=== PATIENT | female | born 1940 | race Caucasian/White ===

== ENCOUNTER 2018-10-10 18:08 | Emergency (ER) | payer MEDICARE, OTHER ==
[~2018-10-10] VITALS: Ht 167.6 cm; Wt 59.0 kg
--- NOTE | 2018-10-10 18:24 | NUR ---
pt BIB [facility] from home with c/o s/o diffuse R sided abd pain today. per pt has a hx of dementia and is at her baseline of oriented to self. per repot pt was in a lot of pain on scene and was very agitated and yelling. pt was medicated with 200mcg of fentanyl HELMET HAT PUNCHER. pt had in IV placed HELMET HAT PUNCHER but it was dislodged dring transfer to [facility] from [facility]. dressing applied. pt is drowsy and confused. mildly hypoxic on RA, placed on NC at 2L. pt is very diaphoretic and pale. EKG has been to bedside. pt has no visible injuries, at bedside deneis any recent injuries. pt placed on concrete buster operator
[2018-10-10] MEDS ORDERED: LISI-170 PO (18:29)
--- NOTE | 2018-10-10 18:39 | NUR ---
report to Alexandra ZUNIGA
[2018-10-10 19:46] LABS: BASOPHILS # (AUTO) 0.08 x10^3/uL (0-0.1); BASOPHILS % (AUTO) 1 % (0-1); EOSINOPHILS # (AUTO) 0.18 x10^3/uL (0-0.4); EOSINOPHILS % (AUTO) 2 % (1-7); LYMPHOCYTES # (AUTO) 2.06 x10^3/uL (1-3.4); LYMPHOCYTES % (AUTO) 18 % (22-44); MD NO; MEAN CORPUSCULAR HEMOGLOBIN 32.3 pg (27.0-34.8); MEAN CORPUSCULAR HGB CONC 34.3 g/dL (32.4-35.8); MEAN CORPUSCULAR VOLUME 94.4 fL (80-100); MEAN PLATELET VOLUME 8.6 fL (7.4-10.4); MONOCYTES % (AUTO) 7 % (2-9); NEUTROPHILS # (AUTO) 8.61 x10^3/uL (1.8-6.8); NEUTROPHILS % (AUTO) 74 % (42-75); PLATELET COUNT 203 x10^3/uL (130-400); RED BLOOD COUNT 4.24 x10^6/uL (3.82-5.3); RED CELL DISTRIBUTION WIDTH 13.1 % (9.6-15.2)
[2018-10-10 19:58] LABS: ALANINE AMINOTRANSFERASE 22 U/L (12-78); ALBUMIN 3.9 g/dL (3.4-5.0); ANION GAP 9 mmol/L (5-15); CALCIUM 9.6 mg/dL (8.5-10.1); CHLORIDE 106 mmol/L (98-107); CREATININE 0.66 mg/dL (0.55-1.02)
[2018-10-10 20:01] LABS: ALKALINE PHOSPHATASE 80 U/L (45-117); BILIRUBIN,TOTAL 0.6 mg/dL (0.2-1.0); TOTAL PROTEIN 7.8 g/dL (6.4-8.2)
[2018-10-10 20:39] LABS: MICROSCOPIC NOT IND
[2018-10-10] MEDS ORDERED: OMNIPAQUE 350 MG/ML, 100ML BOTTLE ONE (20:45)
[2018-10-10 20:48] LABS: CULTURE INDICATED? NO
[2018-10-10 22:17] VITALS: BP 123/51
== END 2018-10-10 22:19 | disposition home or self-care (01) ==
LOC: ED 21:17
DX: R10.9 Unspecified abdominal pain (principal)
CPT/HCPCS: 36415; 74177; 80053; 81003; 83690; 85025; 93005; 99284; Q9967

== ENCOUNTER 2019-11-12 17:10 | Emergency (ER) | payer MEDICARE, OTHER ==
[~2019-11-12] VITALS: Ht 167.6 cm; Wt 54.0 kg
[~2019-11-12 17:10] MED LIST: LISI-170 PO
[2019-11-12] MEDS ORDERED: SODIUM CHLORIDE FLUSH 10ML SYR IVF ONE (17:30)
[2019-11-12 17:47] LABS: BASOPHILS # (AUTO) 0.04 x10^3/uL (0-0.1); BASOPHILS % (AUTO) 1 % (0-1); EOSINOPHILS # (AUTO) 0.08 x10^3/uL (0-0.4); EOSINOPHILS % (AUTO) 1 % (1-7); LYMPHOCYTES # (AUTO) 1.48 x10^3/uL (1-3.4); LYMPHOCYTES % (AUTO) 25 % (22-44); MD NO; MEAN CORPUSCULAR HEMOGLOBIN 31.5 pg (27.0-34.8); MEAN CORPUSCULAR HGB CONC 33.5 g/dL (32.4-35.8); MEAN CORPUSCULAR VOLUME 94.1 fL (80-100); MEAN PLATELET VOLUME 7.8 fL (7.4-10.4); MONOCYTES # (AUTO) 0.34 x10^3/uL (0.2-0.8); MONOCYTES % (AUTO) 6 % (2-9); NEUTROPHILS # (AUTO) 4.05 x10^3/uL (1.8-6.8); NEUTROPHILS % (AUTO) 68 % (42-75); PLATELET COUNT 229 x10^3/uL (130-400); RED BLOOD COUNT 4.07 x10^6/uL (3.82-5.3); RED CELL DISTRIBUTION WIDTH 13.6 % (9.6-15.2)
--- NOTE | 2019-11-12 17:48 | NUR ---
griselda. report received from ems. pt had near syncope at home. pt had glf but pt's cought her. denies loc/trauma. after near syncope, 1 episode of vomit. aox1 is her baseline d/t dementia. resps even and unlabored. all monitors in place. call light within reach. pt's at bedside.
[2019-11-12 17:52] LABS: ALBUMIN 3.4 g/dL (3.4-5.0); ANION GAP 6 mmol/L (5-15); CALCIUM 9.4 mg/dL (8.5-10.1); CHLORIDE 110 mmol/L (98-107)
[2019-11-12 17:55] LABS: ALANINE AMINOTRANSFERASE 19 U/L (12-78); ALKALINE PHOSPHATASE 64 U/L (45-117); BILIRUBIN,TOTAL 0.6 mg/dL (0.2-1.0); CREATININE 0.73 mg/dL (0.55-1.02); TOTAL PROTEIN 6.8 g/dL (6.4-8.2)
[2019-11-12 17:56] LABS: SALICYLATE LEVEL < 1.7 mg/dL (2.8-20.0)
--- NOTE | 2019-11-12 18:04 | NUR ---
pt back to room from ct at this time.
[2019-11-12 18:31] LABS: TROPONIN I < 0.015 ng/mL (0.000-0.045)
--- NOTE | 2019-11-12 18:59 | NUR ---
REPORT FROM REBECCA ZUNIGA ASSUMING CARE OF PT AT THIS TIME
--- NOTE | 2019-11-12 19:45 | NUR ---
STRAIGHT CATH PERFORMED PER POLICY STERILE TECHNIQUE MAINTAINED. URINE SENT TO LAB
[2019-11-12 19:53] VITALS: BP 141/72
[2019-11-12 20:00] LABS: MICROSCOPIC AUTO
[2019-11-12 20:05] LABS: CULTURE INDICATED? YES
== END 2019-11-12 21:38 | disposition home or self-care (01) ==
LOC: ED 20:26
DX: N30.00 Acute cystitis without hematuria (principal); R55 Syncope and collapse; R61 Generalized hyperhidrosis; I10 Essential (primary) hypertension; W18.30XA Fall on same level, unspecified, initial encounter; Y93.89 Activity, other specified; Y92.009 Unspecified place in unspecified non-institutional (private) residence as the place of occurrence of the external cause; Y99.8 Other external cause status
CPT/HCPCS: 36415; 70450; 71045; 80053; 80307; 81001; 82140; 84484; 85025; 87077; 87086; 87186; 93005; 99284

== ENCOUNTER 2020-01-01 13:18 | Emergency (ER) | payer MEDICARE, OTHER ==
[~2020-01-01] VITALS: Ht 162.6 cm; Wt 55.0 kg
[2020-01-01 13:32] LABS: BASOPHILS # (AUTO) 0.01 x10^3/uL (0-0.1); BASOPHILS % (AUTO) 0 % (0-1); EOSINOPHILS # (AUTO) 0.07 x10^3/uL (0-0.4); EOSINOPHILS % (AUTO) 1 % (1-7); LYMPHOCYTES # (AUTO) 1.19 x10^3/uL (1-3.4); LYMPHOCYTES % (AUTO) 13 % (22-44); MD NO; MEAN CORPUSCULAR HEMOGLOBIN 31.4 pg (27.0-34.8); MEAN CORPUSCULAR HGB CONC 33.3 g/dL (32.4-35.8); MEAN CORPUSCULAR VOLUME 94.4 fL (80-100); MEAN PLATELET VOLUME 7.7 fL (7.4-10.4); MONOCYTES # (AUTO) 0.45 x10^3/uL (0.2-0.8); MONOCYTES % (AUTO) 5 % (2-9); NEUTROPHILS # (AUTO) 7.28 x10^3/uL (1.8-6.8); NEUTROPHILS % (AUTO) 81 % (42-75); PLATELET COUNT 240 x10^3/uL (130-400); RED BLOOD COUNT 4.54 x10^6/uL (3.82-5.3); RED CELL DISTRIBUTION WIDTH 13.7 % (9.6-15.2)
--- NOTE | 2020-01-01 13:36 | NUR ---
PT WAS BIB BY RAJANI. PT HAS HISTORY OF DEMENTIA AND IS HISTORIAN. PT REPORTS SHE HAS NOT HAD A BM IN OVER 3 DAYS. HE SAID THIS MORNING HE WAS ABLE TO "PULL OUT AN EXCESSIVE AMOUNT OF POOP. AND THERES STILL MORE". ALSO STATES HER URINA HAS LOOKED A LITTLE CLOUDY. STRAIGHT CATH PEFORMED BY FEMALE MILKA. PT TO X RAY AT THIS TIME. BLANKET PROVIDED
[2020-01-01 13:44] LABS: ALANINE AMINOTRANSFERASE 21 U/L (12-78); ALBUMIN 3.8 g/dL (3.4-5.0); ANION GAP 8 mmol/L (5-15); CALCIUM 9.7 mg/dL (8.5-10.1); CHLORIDE 111 mmol/L (98-107); CREATININE 0.76 mg/dL (0.55-1.02)
[2020-01-01 13:47] LABS: ALKALINE PHOSPHATASE 87 U/L (45-117); BILIRUBIN,TOTAL 0.7 mg/dL (0.2-1.0); TOTAL PROTEIN 7.6 g/dL (6.4-8.2)
[2020-01-01 13:48] LABS: MICROSCOPIC AUTO
[2020-01-01 13:52] LABS: CULTURE INDICATED? YES
--- NOTE | 2020-01-01 14:09 | NUR ---
ENEMA GIVEN. PT TOLERATED WELL. PT AND EDUCATED ON PLAN OF CARE
[2020-01-01 14:44] VITALS: BP 150/77
--- NOTE | 2020-01-01 14:44 | NUR ---
PT WAS ABLE TO PRODUCE A LARGE BM
== END 2020-01-01 15:16 | disposition home or self-care (01) ==
LOC: ED 13:32
DX: K59.00 Constipation, unspecified (principal); N30.00 Acute cystitis without hematuria; I10 Essential (primary) hypertension
CPT/HCPCS: 36415; 74021; 80053; 81001; 85025; 87077; 87086; 87186; 99284

== ENCOUNTER 2020-03-17 15:31 | Emergency (ER) | payer MEDICARE, OTHER ==
[~2020-03-17] VITALS: Ht 162.6 cm; Wt 65.0 kg
--- NOTE | 2020-03-17 15:44 | NUR ---
RUKHSANA. REPORT RECEIVED FROM EMS. PT HAD SYNCOPE EPISODE(UNKNOWN DURATION) AT 1PM. AFTER THIS EPISODE, ALTERED MENTAL STATUS(AOX1) WITH VOMIT X A FEW TIME DRAWING IN MACHINE TENDER. GCS 14 PER EMS. PT IS ABLE TO FOLLOW COMANDS, BUT PT IS CONFUSED. PER PT'S , IT HAPPENS BEFORE X 2-3 TIMES WITH NO REASONS(TOOK HER TO HOSPITAL BEFORE AND NOTHING ABNORMAL BY TESTS). NO HITTING ON HEAD/TRAUMA. PT HAS DEMENTIA. AOX4 IS HER BASELINE PER PT'S HUSABAND. ALL MONITORS IN PLACE. CALL LIGHT WITHIN REACH. EKG DONE AT BEDSIDE BY EMT.
--- NOTE | 2020-03-17 16:02 | NUR ---
EDMD AT BEDSIDE TO EVALUATE AT THIS TIME.
--- NOTE | 2020-03-17 16:15 | NUR ---
PT'S STRAIGHT CATH'D USING STERILE TECHNIQUE. PT TOLERATED WELL. URINE COLLECTED AND THIS RN WALKED TO LAB FOR UA.
[2020-03-17 16:22] LABS: MICROSCOPIC NOT IND
[2020-03-17 16:51] LABS: ANION GAP 6 mmol/L (5-15); CALCIUM 10.3 mg/dL (8.5-10.1); CHLORIDE 111 mmol/L (98-107); CREATININE 0.81 mg/dL (0.55-1.02)
[2020-03-17 16:52] LABS: MEAN CORPUSCULAR HEMOGLOBIN 31.5 pg (27.0-34.8); MEAN CORPUSCULAR HGB CONC 33.1 g/dL (32.4-35.8); MEAN CORPUSCULAR VOLUME 95.1 fL (80-100); MEAN PLATELET VOLUME 8.7 fL (7.4-10.4); PLATELET COUNT 198 x10^3/uL (130-400); RED CELL DISTRIBUTION WIDTH 13.8 % (9.6-15.2)
--- NOTE | 2020-03-17 17:25 | NUR ---
PT RESTING IN GURNEY. RESPS EVEN AND UNLABORED. PT'S AT BEDSIDE AT THIS TIME.
[2020-03-17 17:32] LABS: BASOPHILS # (AUTO) 0.05 x10^3/uL (0-0.1); BASOPHILS % (AUTO) 0 % (0-1); EOSINOPHILS # (AUTO) 0.01 x10^3/uL (0-0.4); EOSINOPHILS % (AUTO) 0 % (1-7); LYMPHOCYTES # (AUTO) 1.03 x10^3/uL (1-3.4); LYMPHOCYTES % (AUTO) 7 % (22-44); MD SCAN; MONOCYTES % (AUTO) 4 % (2-9); NEUTROPHILS # (AUTO) 13.54 x10^3/uL (1.8-6.8); NEUTROPHILS % (AUTO) 89 % (42-75)
[2020-03-17] MEDS ORDERED: LACOSAMIDE 50 MG TAB PO ONE (18:00)
[2020-03-17 18:05] VITALS: BP 162/73
--- NOTE | 2020-03-17 18:05 | NUR ---
PT MEDICATED PER EMAR. PT TOLERATED WELL.
--- NOTE | 2020-03-17 18:40 | NUR ---
Patient/patient's given discharge instructions and they have confirmed that they understand the instructions. Patient ambulatory with steady gait.
== END 2020-03-17 18:40 | disposition home or self-care (01) ==
LOC: ED 16:19
DX: R55 Syncope and collapse (principal); R42 Dizziness and giddiness; I10 Essential (primary) hypertension; R94.31 Abnormal electrocardiogram [ECG] [EKG]
CPT/HCPCS: 36415; 70450; 80048; 81003; 85025; 93005; 99285

== ENCOUNTER 2020-04-27 12:26 | Outpatient (CLI) | payer MEDICARE, OTHER | END 2020-04-27 23:59 | disposition home or self-care (01) | LOC: CARD 12:26 | PROVIDERS: ATTEND Family Medicine | DX: R55 Syncope and collapse (principal); R41.82 Altered mental status, unspecified | CPT/HCPCS: 95819 ==

== ENCOUNTER 2021-01-14 22:33 | Emergency (ER) | payer MEDICARE, OTHER ==
[~2021-01-14] VITALS: Ht 162.6 cm; Wt 57.0 kg
[2021-01-14 23:36] LABS: ALANINE AMINOTRANSFERASE 23 U/L (12-78); ALBUMIN 3.4 g/dL (3.4-5.0); ANION GAP 4 mmol/L (5-15); BASOPHILS % (AUTO) 1 % (0-1); CALCIUM 9.5 mg/dL (8.5-10.1); CHLORIDE 109 mmol/L (98-107); CREATININE 0.98 mg/dL (0.55-1.02); EOSINOPHILS % (AUTO) 2 % (1-7); LYMPHOCYTES % (AUTO) 18 % (22-44); MEAN CORPUSCULAR HEMOGLOBIN 30.9 pg (27.0-34.8); MEAN PLATELET VOLUME 8.6 fL (7.4-10.4); MONOCYTES % (AUTO) 6 % (2-9); NEUTROPHILS % (AUTO) 73 % (42-75); PLATELET COUNT 198 x10^3/uL (130-400); RED BLOOD COUNT 4.22 x10^6/uL (3.82-5.3); RED CELL DISTRIBUTION WIDTH 13.6 % (9.6-15.2)
[2021-01-14 23:38] LABS: ALKALINE PHOSPHATASE 65 U/L (45-117); BILIRUBIN,TOTAL 0.3 mg/dL (0.2-1.0); MD NO; TOTAL PROTEIN 6.7 g/dL (6.4-8.2)
[2021-01-14 23:40] VITALS: BP 118/49
== END 2021-01-15 00:19 | disposition home or self-care (01) ==
LOC: ED 01-15
DX: R10.84 Generalized abdominal pain (principal); R10.30 Lower abdominal pain, unspecified; R11.0 Nausea; R55 Syncope and collapse; I10 Essential (primary) hypertension; Z87.891 Personal history of nicotine dependence; R94.31 Abnormal electrocardiogram [ECG] [EKG]
CPT/HCPCS: 36415; 74022; 80053; 83690; 85025; 93005; 99285